=== PATIENT | male | born 1950 | race Caucasian/White ===

== ENCOUNTER 2017-06-09 07:50 | Day surgery (SDC) | payer MEDICARE ==
[~2017-06-09 07:50] MED LIST: AMLODIPINE; AMLODIPINE5 M1 PO; ASPIRIN EC325 MG PO; ATORVASTATIN; KEFLEX 500MG.500 MG PO; LIPITOR40 MG PO; LISINOPRIL 5MG T5 MG NG; METOPROLOL25 MG PO; VITAMIN E 400400 IU PO
--- NOTE | 2017-06-09 09:48 | Operative Note ---
Colonoscopy ([facility]) Procedure date: 06/09/17 Date of : 54 Procedure:Colonoscopy Colonoscopy with cold snare polypectomy Indications: Mr. Yip is a 67-year-old gentleman who is here for diagnostic colonoscopy. The patient did have a positive colon guard recently. He reports some occasional hemorrhoidal bleeding when he has excessive wiping. He does have some constipation/incomplete defecation. He reports no abdominal pain. He reports some intentional been no unintentional weight loss. He reports no family history of colon cancer. This is his first colonoscopy. Performing Provider: En Ng MD Referrring Provider: Rex Rojo M.D. Sedation: Fentanyl 100 mg IV/Versed 7 mg IV Procedure: Prior to the procedure, a history and physical exam was performed, and patient medications and allergies were reviewed. The risks and benefits of the procedure and the sedation options and risks were discussed with the patient. All questions were answered and informed consent was obtained. Patient identification and proposed procedure were verified by the physician and the nurse. The patient was placed in a left lateral decubitus position. Throughout the procedure, the patient's blood pressure, pulse, and oxygen saturations were monitored continuously. Findings: On digital rectal examination there was normal rectal tone. There were no external hemorrhoids. There was a prostate nodule along the lower margin with prostate firmness and asymmetry. The colonoscope was introduced through the anal canal to the rectum and advanced to the cecum. The ileocecal valve and appendiceal orifice were identified. The scope was advanced a short distance into the ileum which appeared grossly normal. The scope was then withdrawn into the colon. There were 4 colon polyps identified in the ascending 1, descending cold snare polypectomy. There were extensive scattered diverticuli throughout the descending and sigmoid colon (LEFT colon). The rectum itself was normal. Upon retroflexion within the rectum there were grade 2 internal hemorrhoids. Impressions: 1. Colonic polyps 4 2. Extensive left-sided diverticulosis 3. Grade 2 internal hemorrhoids 4. Lower margin prostate nodule with firmness and prostate asymmetry Recommendations: I will follow up the polyp pathology and recommend repeat colonoscopy again in 3 -5 years based upon the polyp histology. I would encourage fiber supplementation on a long-term daily maintenance basis. I am concerned about the prostate nodule with moderate to marked prostate firmness and asymmetry. I would check PSA with referral to urology (Dr. Darrel Garcia). Complications: None EBL (ml): 0 at 0948
[2017-06-09 14:07] VITALS: BP 93/46
== END 2017-06-09 10:50 | disposition home or self-care (01) ==
LOC: SDC 07:50
PROVIDERS: Internal Medicine Gastroenterology
PROC: 0DBN8ZX Excision of Sigmoid Colon, Via Natural or Artificial Opening Endoscopic, Diagnostic (ICD-10-PCS; 2017-06-09)
PROC: 0DBM8ZX Excision of Descending Colon, Via Natural or Artificial Opening Endoscopic, Diagnostic (ICD-10-PCS; 2017-06-09)
PROC: 0DBK8ZX Excision of Ascending Colon, Via Natural or Artificial Opening Endoscopic, Diagnostic (ICD-10-PCS; principal; 2017-06-09 09:00)
DX: K63.5 Polyp of colon (principal); K57.30 Diverticulosis of large intestine without perforation or abscess without bleeding; K64.1 Second degree hemorrhoids; N40.2 Nodular prostate without lower urinary tract symptoms; Z12.5 Encounter for screening for malignant neoplasm of prostate; E11.8 Type 2 diabetes mellitus with unspecified complications
CPT/HCPCS: G0103